=== PATIENT | female | born 2000 | race Caucasian/White ===

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

== ENCOUNTER 2021-01-23 10:25 | Outpatient (CLI) | payer MEDICAID, SELFPAY ==
[2021-01-23 10:55] VITALS: BP 113/82; PULSE 91; TEMP 36.4; O2SAT 100
[2021-01-23 11:09] VITALS: BMI 27.3
--- NOTE | 2021-01-23 17:00 | OB.TRI.NOTE ---
HPI - General HPI Narrative ADI JENKINS, is a 20 F who presents contractions PFSH PFSH Home Medications acetaminophen [Tylenol] 325 mg PO Q6H 01/23/21 [History Last Taken Unknown] [id number] [] 1 tab PO DAILY 01/23/21 [History Last Taken 01/16/21] Allergy/AdvReac Type Severity Reaction Status Date / Time Cephalosporins Allergy Anaphylaxis Verified 01/23/21 11:11 Penicillins [PCN] Allergy Anaphylaxis Verified 01/23/21 11:11 Social History Smoking Status: Never smoker NST FHR Rate Baby A Baseline: 120 Variability:: Moderate Accelerations:: 15 x 15 Decelerations:: None NST Reactive:: Yes Uterine Activity:: Quiet Assessment & Plan (1) : PLAN: Patient presents with contractions. No sign of labor. Reactive NST. Okay to discharge home follow-up at scheduled appointments
== END 2021-01-23 11:20 | disposition home or self-care (01) ==
LOC: WPOUT 10:26 → WP 10:27
PROVIDERS: Referring Provider Obstetrics & Gynecology; Visit Provider Obstetrics & Gynecology
DX: O47.9 False labor, unspecified (principal); Z3A.00 Weeks of gestation of pregnancy not specified
CPT/HCPCS: 59050; 99218; G0378

== ENCOUNTER 2021-02-03 21:30 | Inpatient (IN) | payer MEDICAID, SELFPAY ==
--- NOTE | 2021-02-03 21:38 | PCM.HP.BLA ---
History and Physical Date of Admission: 02/03/21 Chief complaint: Induction of labor at term History of present illness: 20-year-old G1, P0 at 41 weeks and 5 days with HUGH 01/23/2021 by 8-week ultrasound arrives for induction of labor at term. Denies headache, chest pain, shortness of breath, nausea vomit, right upper quadrant pain. Patient states good movement. Obstetric history: G1: Current Past medical history: Migraines Medications: vitamin, Fioricet Past surgical history: None Family history: Denies history DVT or PE Social history: Denies smoking, alcohol use, drug use Allergies: Keflex, penicillin Review of systems: Besides above pertinent positives a full review of systems was performed and found to be negative Physical exam: Vitals: Blood pressure 117/71 pulse 85 temp 97.7 SPO2 90% on room air General: Normal-appearing no acute distress HEENT: Normocephalic atraumatic no cervical of adenopathy Cardiac/respiratory: Nonlabored breathing, no use of accessory muscles Abdomen: Soft, nontender, gravid Extremities: No peripheral edema normal peripheral pulses Psych: Normal affect normal demeanor nonpressured speech Labs: White blood cell count 10.1, hemoglobin 10.0 hematocrit 32.3% platelets 298. Blood type a positive antibody negative Assessment plan: 20-year-old at 41 weeks and 5 days for induction of labor at term Admit labor and delivery CEFM GBS negative Cytotec induction Routine orders Anesthesia to see
[2021-02-03 21:43] VITALS: TEMP 37.3
[2021-02-03 21:44] VITALS: BP 114/79; PULSE 116
[2021-02-03 21:46] VITALS: BMI 28.1
[2021-02-03 22:18] LABS: Absolute Lymphocyte Count 1.78 X10^3/uL (0.83-4.51); Basophil# 0.03 X10^3/uL; Basophil% 0.3 % (0-1); Eosinophil# 0.03 X10^3/uL; Eosinophils% 0.3 % (0-5); Hematocrit 32.3 % (37-47); Lymphocyte # 1.78 X10^3/ul (0.83-4.51); Lymphocyte % 17.7 % (19-41); Mean Corpuscular Hgb 24.9 pg (27.0-32.0); Mean Corpuscular Volume 80.3 fL (81-99); Monocyte# 1.17 X10^3/uL; Monocyte% 11.6 % (0-10); NRBC Flagged by Analyzer 0 % (0-5); Neutrophil # 6.98 X10^3/uL (2.7-7.7); Neutrophil % 69.4 % (47-70); Platelet Count 298 K/mm3 (150-450); RBC Distribution Width CV 15.2 % (11.6-14.6); RBC Distribution Width SD 44.1 fl (35.1-43.9); Red Blood Count 4.02 M/mm3 (4.2-5.4); White Blood Count 10.1 K/mm3 (4.4-11.0)
[2021-02-03] MEDS: miSOPROStol 25 MCG TABLET PO (23:03)
[2021-02-03 23:15] VITALS: TEMP 36.6
[2021-02-03 23:16] VITALS: BP 121/65; PULSE 93
[2021-02-04] VITALS (28 sets, daily range): BP systolic 103–127; BP diastolic 56–84; PULSE 76–107; TEMP 36.1–37.2; O2SAT 97–100
[2021-02-04] MEDS: miSOPROStol 50 MCG TABLET PO ×2 (03:07→09:14)
[2021-02-04] MEDS: Acetaminophen 500 MG Tablet PO ×2 (03:10→09:13)
--- NOTE | 2021-02-04 11:42 | PCM.PN.OB ---
Subjective Subjective Pt feeling some cramping but not heavy contractions. Going natural Objective Data Objective Data Vital Signs: Vital Signs Temp Pulse BP Pulse Ox 98.9 F 93 124/60 H 99 02/04/21 09:42 02/04/21 09:42 02/04/21 09:42 02/04/21 09:42 Weight: 159 lb Body Mass Index (BMI) 28.1 Lab / Micro Data Result Diagrams: 02/03/21 21:50 Labs: Laboratory Results - last 24 hr 02/03/21 21:50: WBC 10.1, RBC 4.02 L, Hgb 10.0 L, Hct 32.3 L, MCV 80.3 L, MCH 24.9 L, MCHC 31.0 L, RDW Std Deviation 44.1 H, RDW Coeff of [place] 15.2 H, Plt Count 298, MPV 11.0, Immature Gran % (Auto) 0.700, Neut % (Auto) 69.4, Lymph % (Auto) 17.7 L, [place] % (Auto) 11.6 H, Eos % (Auto) 0.3, Baso % (Auto) 0.3, Absolute Neuts (auto) 7.0, Absolute Lymphs (auto) 1.78, Nucleated RBC % 0 02/03/21 21:50: Blood Type A POSITIVE, Antibody Screen NEGATIVE Micro: Microbiology 02/03/21 22:00 Mucosa - Nasopharyngeal SARS-CoV-2 Antigen (Rapid) - Final Physical Exam Const alert, oriented x3, no apparent distress, average body habitus, healthy appearing and well nourished HEENT normocephalic and moist oral mucous membranes Head and Scalp: atraumatic Face and Sinus: normal facial exam Neck full ROM Resp normal respiratory effort, no retractions and no use of accessory muscles GI normal to inspection, nondistended, normoactive bowel sounds Narrative: CE /-2 AROM clear fluid. IUPC placed Extremity normal to inspection, full ROM and no clubbing, cyanosis or edema Psych mental status grossly normal, affect normal, speech normal and activity/motor behavior normal NST FHR Rate Baby A Baseline: 130 Variability:: Moderate Accelerations:: 15 x 15 Decelerations:: Prolonged (Pt with 3-4 min decel in 60's resolved with position change. Accel with scalp stim) Uterine Activity:: q10 min Assessment & Plan (1) : PLAN: Patient seen and examined. Called by nursing with prolonged deceleration resolved with position change. Last dose of Cytotec was on 900. Cervical exam /, AROM clear fluid, IUPC placed. Patient feeling some contractions, going natural. Will start Pitocin for augmentation. Now with reassuring heart tones and after deceleration now category 1 tracing.
[2021-02-04] MEDS: Lactated Ringers 500 ML 999 ML IV ×2 (12:10→19:27)
[2021-02-04] MEDS: Oxytocin 30 units/NS 500 ml 30 UNITS/500 ML IV.SOLN IV (14:27)
[2021-02-04] MEDS: fentaNYL-bupivacaine (epidural) 100 ML BAG EPIDURAL ×3 (14:31→23:57)
[2021-02-04] MEDS: Lactated Ringers 1,000 ML 50 ML IV (17:31)
--- NOTE | 2021-02-04 19:00 | PCM.PN.OB ---
Subjective Subjective Obtain epidural but feeling very uncomfortable in bed. Still feeling back pain Objective Data Objective Data Vital Signs: Vital Signs Temp Pulse BP Pulse Ox 97.0 F L 76 112/74 99 02/04/21 17:22 02/04/21 17:23 02/04/21 17:22 02/04/21 17:23 Weight: 159 lb Body Mass Index (BMI) 28.1 Intake & Output: Intake and Output for Last 24 Hours 02/02/21 02/03/21 02/04/21 23:59 23:59 23:59 Intake Total 513.03 / 513.03 Output Total 700 / 700 Balance -186.97 / -186.97 Lab / Micro Data Result Diagrams: 02/03/21 21:50 Labs: Laboratory Results - last 24 hr 02/03/21 21:50: WBC 10.1, RBC 4.02 L, Hgb 10.0 L, Hct 32.3 L, MCV 80.3 L, MCH 24.9 L, MCHC 31.0 L, RDW Std Deviation 44.1 H, RDW Coeff of [place] 15.2 H, Plt Count 298, MPV 11.0, Immature Gran % (Auto) 0.700, Neut % (Auto) 69.4, Lymph % (Auto) 17.7 L, [place] % (Auto) 11.6 H, Eos % (Auto) 0.3, Baso % (Auto) 0.3, Absolute Neuts (auto) 7.0, Absolute Lymphs (auto) 1.78, Nucleated RBC % 0 02/03/21 21:50: Blood Type A POSITIVE, Antibody Screen NEGATIVE Micro: Microbiology 02/03/21 22:00 Mucosa - Nasopharyngeal SARS-CoV-2 Antigen (Rapid) - Final Physical Exam Const alert, oriented x3, no apparent distress, average body habitus, healthy appearing and well nourished HEENT normocephalic and moist oral mucous membranes Head and Scalp: atraumatic Neck full ROM Resp normal respiratory effort, no retractions and no use of accessory muscles GI normal to inspection, nondistended, normoactive bowel sounds Psych mental status grossly normal, affect normal, speech normal and activity/motor behavior normal Assessment & Plan (1) : PLAN: Patient status post epidural, initially with pain relief but currently increased pain. Anesthesia to see. Cervical dilation minimal at this point, approximately 2 cm. We will continue to titrate Pitocin. Educated patient on continuing position change and to titrate Pitocin. Will get comfortable with epidural.
[2021-02-04] MEDS: Ondansetron 4 MG/2 ML Vial IV (20:54)
[2021-02-04] MEDS: Lactated Ringers 1,000 ML 200 ML IV (22:46)
[2021-02-05] VITALS (33 sets, daily range): BP systolic 104–137; BP diastolic 58–84; PULSE 82–122; RESP 16; TEMP 36.6–37.3; O2SAT 93–99
[2021-02-05] MEDS: Lactated Ringers 500 ML 999 ML IV ×2 (02:05→03:10)
[2021-02-05] MEDS: Acetaminophen 500 MG Tablet PO (02:09)
[2021-02-05] MEDS: Oxytocin 30 units/NS 500 ml 30 UNITS/500 ML IV.SOLN 334 UNITS IV (05:10)
--- NOTE | 2021-02-05 05:38 | EX.PCM.OBRPT ---
Vaginal Delivery Findings Description of Procedure: Preop diagnosis: Term, maternal exhaustion Postop diagnosis: Term, maternal exhaustion Procedure: Vacuum-assisted vaginal delivery Surgeon: Reji Nolan MD Anesthesia: Epidural EBL: 250 cc Complications: None Specimen: None Findings: Female in vertex position, ROT +2 station. Apgars 5/7/8. First-degree midline perineal laceration, left labial laceration Consent: Patient arrived for induction of labor at term. Cervical dilation found to be complete and patient pushed for 3 hours. Patient began to feel exhausted. Upon evaluation head was palpated to be ROT +2 station. Pelvis felt to be appropriate for vaginal delivery and the fetus was not macrosomic by palpation. The epidural was adequate for pain relief. Educated patient on options of section versus vacuum versus forceps. Educated risk benefits alternatives of each procedure. Patient desired to proceed with vacuum delivery, understood there were small risk for cephalhematoma or shoulder dystocia. The process of the vacuum delivery was explained. Procedure: Hutchinson catheter was present. Vaginal examination reconfirmed ROT +2 station. Kiwi vacuum device was applied over the sagittal suture about 3 cm in front posterior fontanelle toward the face. Vacuum pressure was created. The edge of the vacuum cup was carefully examined and no maternal tissue was entrapped under the cup. Right hand applied gentle horizontal traction along the pelvic access in coordination with uterine contraction and maternal pushing. Progressive descent was noted with each pull. The handle of vacuum was gradually elevated when the perineum began to bulge. The cup popped off the head x1. The cup was removed after the head was delivered. Head and shoulders were delivered with ease. Cord was cut and clamped baby was handed off to hadoop infrastructure architect. The placenta was delivered via cord traction and fundal massage. IV oxytocin was initiated to facilitate uterine contractions. The cervix and vaginal wall were thoroughly examined. First-degree perineal midline laceration noted and repaired in typical fashion. Left labial laceration noted and repaired in typical fashion. The was examined after delivery. No visible lacerations or bruises were found.
[2021-02-05] MEDS: 0.9% Saline Lock 10 ML Syringe IV (07:47)
[2021-02-05] MEDS: Benzocaine/Lanolin/Aloe Vera 1 SPRAY EACH TOPICAL (10:29)
[2021-02-05] MEDS: Ibuprofen 600 MG Tablet PO (10:30)
[2021-02-05] MEDS: Acetaminophen 500 MG Tablet 1000 MG PO (18:21)
[2021-02-06] MEDS: Ibuprofen 600 MG Tablet PO (00:05)
[2021-02-06 00:10] VITALS: BP 124/82; PULSE 101; RESP 18; TEMP 37
[2021-02-06 04:50] VITALS: BP 119/87; PULSE 92; RESP 16; TEMP 36.7
[2021-02-06 07:43] VITALS: BP 122/76; PULSE 94; RESP 16; TEMP 36.5
[2021-02-06] MEDS: Senna/Docusate Sodium 1 Tablet PO (07:54)
[2021-02-06] MEDS: Acetaminophen 500 MG Tablet 1000 MG PO (07:54)
--- NOTE | 2021-02-06 08:24 | PCM.DC ---
Discharge Instructions Diet Discharge Diet: No restrictions Activity Discharge Activity: Return to Normal Activity, May Drive and May Shower May resume sexual activity in: 4-6 weeks Weight Bearing Status: Weight bearing as tolerated Dressing / Incision Call your doctor if your incision/area has: Continuous Slow Oozing and Foul Smelling Discharge Call your doctor if you observe: Fever of 101 or Higher, Shortness of breath and Chest pain Follow Up Care Please Follow Up With: Reji Nolan MD When: 2-week telehealth visit, 4 to 6-week visit Test Results: Test results from this visit will be discussed in further detail at your follow-up appointment, if applicable. Discharge Plan Admission Admit Date/Time: 02/03/21 21:30 Attending Provider: Tiffany Nicole Primary Care Provider: Care PhysicianGrace Primary Discharge Orders/Prescriptions Prescriptions: No Action 1 mg Tablet 1 tab PO DAILY RF: 0 acetaminophen [Tylenol] 325 mg Capsule 325 mg PO Q6H RF: 0 [id number] [Fioricet] 50-300-40 mg Capsule 50 cap PO PRN PRN (Reason: headache) RF: 0 Disposition Discharge Orders: Discharge Patient (Routine); Ordered 02/06/21 Ordered By: Dr. Reji Nolan
--- NOTE | 2021-02-06 08:25 | PN.OBGYN_ITS ---
Subjective Subjective No overnight complaints. Pain well controlled. Objective Data Objective Data Vital Signs: Vital Signs Temp Pulse Resp BP Pulse Ox 97.7 F L 94 16 122/76 H 93 02/06/21 07:43 02/06/21 07:43 02/06/21 07:43 02/06/21 07:43 02/05/21 05:52 Oxygen Delivery Method Room Air Weight: 159 lb Body Mass Index (BMI) 28.1 Intake & Output: Intake and Output for Last 24 Hours 02/04/21 02/05/21 02/06/21 23:59 23:59 23:59 Intake Total 2026.17 / 2026. 2524.9 / 2524.9 Output Total 700 / 700 600 / 600 Balance 1327.17 / 1327.17 1924.9 / 1924.9 Lab / Micro Data Result Diagrams: 02/03/21 21:50 Micro: Microbiology 02/03/21 22:00 Mucosa - Nasopharyngeal SARS-CoV-2 Antigen (Rapid) - Final Physical Exam Const alert, oriented x3, no apparent distress, average body habitus, healthy appearing and well nourished Exam Limitations: no limitations HEENT normocephalic Neck full ROM Resp normal respiratory effort, no retractions and no use of accessory muscles Extremity normal to inspection and no clubbing, cyanosis or edema Psych mental status grossly normal, affect normal, speech normal and activity/motor behavior normal Assessment & Plan (1) : PLAN: day 1. Breast-feeding. Pain well controlled. 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
[2021-02-06 11:50] VITALS: BP 113/73; PULSE 100; RESP 16; TEMP 36.8
== END 2021-02-06 12:15 | disposition home or self-care (01) | DRG 560 ==
PROVIDERS: Admitting Provider Obstetrics & Gynecology; Visit Provider Obstetrics & Gynecology
DX: O76 Abnormality in fetal heart rate and rhythm complicating labor and delivery (principal); O48.0 Post-term pregnancy; O75.81 Maternal exhaustion complicating labor and delivery; O70.0 First degree perineal laceration during delivery; Z3A.41 41 weeks gestation of pregnancy; Z37.0 Single live birth; Z87.891 Personal history of nicotine dependence
CPT/HCPCS: 59025; 59050; 85025; 86850; 86900; 86901; 87426; 99218; J7120; A4216; G0378; J2405

== ENCOUNTER 2022-02-11 14:55 | Emergency (ER) | payer MEDICAID, SELFPAY ==
[2022-02-11 14:56] VITALS: BP 115/85; PULSE 75; RESP 16; TEMP 36.6; O2SAT 98; BMI 19.3
--- NOTE | 2022-02-11 15:05 | EDS_ITS ---
HPI History of Present Illness Chief Complaint: Headache Informant: patient Onset/Context/Timing Onset: Days (4 days) Context: Gradual Timing: Waxes and wanes Quality -Headache: Positive for Similar Prior Headaches and Throbbing Current Severity: Moderate Maximum Severity: Moderate Narrative Narrative: Patient presents with 4-day history of migraine headache. She states it will vary between her temples. She is a history of similar migraines in the past. When she was she was told she only take Tylenol so therefore is only been using that for this migraine. She is not currently but is breast- feeding. She denies recent head injury. No recent URI symptoms. She does have light sensitivity along with nausea and vomiting. [facility] Medical History (Updated 02/11/22 @ 16:[address] Nury Mcdonough MD) Anxiety Migraines Home Medications acetaminophen 325 mg capsule (Tylenol) 325 mg PO Q6H headaches 01/23/21 [History Last Taken 02/03/21 1000 mg] Allergy/AdvReac Type Severity Reaction Status Date / Time Cephalosporins Allergy Anaphylaxis Verified 02/11/22 15:05 Penicillins [PCN] Allergy Anaphylaxis Verified 02/11/22 15:05 Social History Smoking Status: Former smoker ROS ROS ED Constitutional Constitutional ED: Denies chills or fever(s) Eyes Eyes: Denies change in vision or discharge from eye(s) ENT ENT ED: Denies discharge from eye(s), rhinorrhea or sore throat Cardiovascular Cardiovascular: Denies chest pain or palpitations Respiratory/Chest Respiratory/Chest: Denies cough or dyspnea Gastrointestinal Gastrointestinal: Reports nausea and vomiting; Denies abdominal pain or diarrhea Genitourinary Genitourinary ED: Denies difficulty urinating or dysuria Musculoskeletal Musculoskeletal: Denies back pain or extremity pain Integumentary Denies Abrasions or rash Neurologic Neurologic: Reports headache(s); Denies weakness Psychiatric Psychiatric: Denies anxiety or depression Endocrine Endocrinology: Denies polydipsia or polyuria Allergic/Immunologic Allergic/Immunologic ED: Denies lip swelling or urticaria EXAM Physical Exam Const Vital Signs: 02/11/22 14:56 Temperature 98 F Temperature Source Temporal Pulse Rate 75 Respiratory Rate 16 Blood Pressure 115/85 H Blood Pressure Mean 95 Pulse Ox 98 Oxygen Delivery Method Room Air Positive well nourished and well developed General Appearance ED: well developed HEENT Reports normocephalic and head/scalp atraumatic Eyes PERRL and EOMs intact bilaterally Neck supple Chest Wall inspection of chest normal and palpation of chest normal Resp normal respiratory effort and clear to auscultation bilaterally Cardio regular rate and regular rhythm GI normal to inspection, nondistended, normoactive bowel sounds Palpation: soft Extremity normal to inspection Neuro oriented x3 and no sensory deficits noted Sensorium / Orientation: alert Motor Exam: strength 5/5 throughout Psych mental status grossly normal Skin no rashes or lesions noted MDM MDM MDM Narrative Medical decision making narrative: Patient is given IV fluids along with Toradol, Reglan, Benadryl. Treatment and Re-Evaluation Narrative: On repeat evaluation patient reports feeling much improved. At this time she will be discharged home with family. Discharge Plan Triage Chief Complaint: Headache ED Provider: Nury Mcdonough Dx/Rx/DC Orders Clinical Impression: Migraine Instructions: ED, Migraine (Classical) Prescriptions: No Action acetaminophen [Tylenol] 325 mg Capsule 325 mg PO Q6H Primary Care Provider: Care Physician,No Primary Referrals: Lavinia Rolon DO [Med Staff - [employer]] - As Needed Care Physician,No Primary [Primary Care Provider] - Disposition Disposition: Home, Self Care
[2022-02-11] MEDS: 0.9% Normal Saline 1,000 ML 999 ML IV (15:29)
[2022-02-11] MEDS: Metoclopramide 10 MG/2 ML Vial 5 MG IV (15:29)
[2022-02-11] MEDS: DiphenhydrAMINE 50 MG/ML Syringe 12.5 MG IV (15:30)
[2022-02-11] MEDS: Ketorolac 30 MG/ML Syringe IV (15:30)
[2022-02-11 16:31] VITALS: BP 104/72; PULSE 63; RESP 16
== END 2022-02-11 16:33 | disposition home or self-care (01) ==
PROVIDERS: Emergency Provider Emergency Medicine; Visit Provider Emergency Medicine
DX: G43.909 Migraine, unspecified, not intractable, without status migrainosus (principal); Z87.891 Personal history of nicotine dependence
CPT/HCPCS: 96361; 96374; 96375; 99282; J7030; A4216

== ENCOUNTER 2022-02-20 10:57 | Emergency (ER) | payer MEDICAID, SELFPAY ==
[2022-02-20 10:58] VITALS: BP 116/73; PULSE 125; RESP 18; TEMP 36.3; O2SAT 96; BMI 19.3
--- NOTE | 2022-02-20 11:23 | EDS_ITS ---
HPI History of Present Illness Chief Complaint: Headache Narrative Narrative: Patient presents with migraine headache that she is had since 6:00 this morning, approximately 5 and half hours ago. It is associated with nausea and vomiting. She vomited twice without any blood in her emesis. She states that she has past medical history of recurrent migraines but is currently not on medication. She had to come to the emergency department last week where they gave her a migraine cocktail which relieved her symptoms and they suggested that she follow-up with her primary care physician according to her. She does not have any breakthrough medications at home because she was doing well, but does endorse more frequent migraines. This is typical for her previous migraines, it is one- sided, on the right. She endorses photophobia and minimal phonophobia. She denies any aura or paresthesias. She thought maybe it was starting a small amount last evening. She took Tylenol this morning without relief of her symptoms. PFSH PFS Medical History Anxiety Migraines Home Medications acetaminophen 325 mg capsule (Tylenol) 325 mg PO Q6H headaches 01/23/21 [History Last Taken 02/03/21 1000 mg] Allergy/AdvReac Type Severity Reaction Status Date / Time Cephalosporins Allergy Anaphylaxis Verified 02/20/22 10:59 Penicillins [PCN] Allergy Anaphylaxis Verified 02/20/22 10:59 Social History Smoking Status: Former smoker ROS ROS ED ROS Narrative Constitutional: No fever, no chills. HEENT: No sore throat. No neck pain. No loss of vision. No rhinorrhea. Cardiovascular: No chest pain. No palpitations. No pedal edema. Respiratory: No cough, no shortness of breath. Abdominal: No abdominal pain. Positive nausea. 2 episodes of nonbloody vomiting. Genitourinary: No dysuria. No hematuria. Musculoskeletal: No myalgias. No arthralgias. Neurologic: Positive right-sided migraine headaches. No dizziness. No lightheadedness. Skin: No rash. No change in color. Psychiatric: No depression. No anxiety. EXAM Physical Exam Narrative Exam Narrative: Afebrile. Vital signs noted. HEENT: Normocephalic. Atraumatic. PERRL, EOMI. Neck soft and supple. No point tenderness or step off. Cardiovascular: Regular rate and rhythm. No murmurs, rubs, or gallops appreciated. Respiratory: No tachypnea. Lungs clear to auscultation bilaterally. Gastrointestinal: Abdomen soft, nontender, with normoactive bowel sounds. No rebound or guarding. Neurological: Awake. Alert. Oriented x3. Nonfocal, nonlateralizing. DTRs equal and symmetric. EHL intact bilaterally. Skin: No rash. Normal color. No pallor. Musculoskeletal: No pedal edema. Full range of motion extremities. Const Vital Signs: 02/20/22 10:58 02/20/22 13:15 Temperature 97.3 F L Temperature Source Temporal Pulse Rate 125 H Respiratory Rate 18 Blood Pressure 116/73 119/80 Blood Pressure Mean 87 93 Pulse Ox 96 Oxygen Delivery Method Room Air MDM MDM MDM Narrative Medical decision making narrative: Patient was administered IV fluid normal saline bolus of 1 L along with Compazine and Benadryl. She was allowed to rest in the emergency department. Just prior to formal discharge, RN states that the patient stated that she had to go home and take care of her family and that she had been feeling improved. She eloped prior to formal discharge. Patient was in improved and stable condition. Discharge Plan Triage Chief Complaint: Headache ED Provider: Alvaro Sam Dx/Rx/DC Orders Clinical Impression: Migraine, Nausea & vomiting Instructions: ED, Migraine (Classical) Prescriptions: No Action acetaminophen [Tylenol] 325 mg Capsule 325 mg PO Q6H Primary Care Provider: Care Physician,No Primary Referrals: Care Physician,No Primary [Primary Care Provider] - Disposition Disposition: Elopement
[2022-02-20] MEDS: proCHLORPERazine 10 MG/2 ML Vial IV (11:31)
[2022-02-20] MEDS: 0.9% Normal Saline 1,000 ML 999 ML IV (11:31)
[2022-02-20] MEDS: DiphenhydrAMINE 50 MG/ML Syringe 25 MG IV (11:31)
[2022-02-20 13:15] VITALS: BP 119/80
== END 2022-02-20 13:20 | disposition left against medical advice (07) ==
PROVIDERS: Emergency Provider Emergency Medicine; Visit Provider Emergency Medicine
DX: G43.909 Migraine, unspecified, not intractable, without status migrainosus (principal); Z53.29 Procedure and treatment not carried out because of patient's decision for other reasons; Z87.891 Personal history of nicotine dependence
CPT/HCPCS: 96361; 96374; 96375; 99282; J7030; A4216

== ENCOUNTER 2022-06-07 08:10 | Emergency (ER) | payer MEDICAID, SELFPAY ==
[2022-06-07 08:13] VITALS: BP 117/75; PULSE 99; RESP 16; TEMP 35.7; O2SAT 97; BMI 19.1
[2022-06-07] MEDS: DiphenhydrAMINE 50 MG/ML Syringe 25 MG IV (08:47)
[2022-06-07] MEDS: 0.9% Normal Saline 1,000 ML 999 ML IV (08:48)
[2022-06-07] MEDS: proCHLORPERazine 10 MG/2 ML Vial IV (08:49)
[2022-06-07] MEDS: Ketorolac 30 MG/ML Syringe IV (08:49)
--- NOTE | 2022-06-07 10:15 | ED.RN ---
pt left department. pulled iv out
--- NOTE | 2022-06-07 10:19 | EX.ED.DYSGE1 ---
HPI History of Present Illness Chief Complaint: Headache Informant: patient Narrative Narrative: 21-year-old female presents to the emergency room with 3 days of a headache. She notes pain behind the right eye extending back towards the head. She notes that she has vomited twice. She notes light sensitivity. She has breast-feeding and does not know what she can take so she is only been taking Tylenol. She denies any fevers. No arm or leg symptoms. No speech difficulty. She denies any rashes or any neck pain. [facility] Medical History Anxiety Migraines Home Medications acetaminophen 325 mg capsule (Tylenol) 325 mg PO Q6H headaches 01/23/21 [History Last Taken 02/03/21 1000 mg] Allergy/AdvReac Type Severity Reaction Status Date / Time Cephalosporins Allergy Anaphylaxis Verified 06/07/22 08:13 Penicillins [PCN] Allergy Anaphylaxis Verified 06/07/22 08:13 Social History (Updated 06/07/22 @ 10:[address] Gerardo Friedman DO) Smoking Status: Former smoker substance use type: does not use ROS ROS ED Constitutional Constitutional ED: Denies chills or weight loss Eyes Eyes: Denies change in vision or diplopia ENT ENT ED: Denies ear pain, rhinorrhea or sore throat Cardiovascular Cardiovascular: Denies chest pain, orthopnea, palpitations or racing heartbeat Respiratory/Chest Respiratory/Chest: Denies cough, dyspnea or orthopnea Gastrointestinal Gastrointestinal: Reports nausea and vomiting; Denies abdominal pain or diarrhea Genitourinary Genitourinary ED: Denies dysuria, hematuria or urinary frequency Musculoskeletal Musculoskeletal: Denies arthralgias or myalgias Integumentary Denies abscess or rash Neurologic Neurologic: Reports headache(s); Denies weakness Psychiatric Psychiatric: Denies anxiety, depression, suicidal ideation or suicidal thoughts Endocrine Endocrinology: Denies polydipsia, polyphagia or polyuria Allergic/Immunologic Allergic/Immunologic ED: Denies mouth swelling, tongue swelling or urticaria EXAM Physical Exam Const Vital Signs: 06/07/22 08:13 Temperature 96.2 F L Temperature Source Temporal Pulse Rate 99 Respiratory Rate 16 Blood Pressure 117/75 Blood Pressure Mean 89 Pulse Ox 97 Oxygen Delivery Method Room Air Positive well nourished and well developed General Appearance ED: well developed HEENT Reports normocephalic, head/scalp atraumatic and moist mucous membranes Eyes PERRL and EOMs intact bilaterally Neck no lymphadenopathy, supple and no JVD Resp normal respiratory effort and clear to auscultation bilaterally Cardio regular rate, regular rhythm and no murmurs GI normal to inspection, nondistended, normoactive bowel sounds and non-tender Palpation: soft Back/Spine no CVA tenderness and normal ROM Extremity normal to inspection General Extremety ED: Negative for edema General Extremity: Negative for edema Neuro oriented x3 and CN's II-XII intact bilaterally Sensorium / Orientation: alert Motor Exam: strength 5/5 throughout Psych mental status grossly normal Mood & Affect: Negative for depressed or tearful Skin no rashes or lesions noted and no wounds MDM MDM MDM Narrative Medical decision making narrative: Patient received IV fluids Compazine Toradol and Benadryl. When I went back to reevaluate the patient the patient was gone and her IV was in the trash can. Discharge Plan Triage Chief Complaint: Headache ED Provider: Gerardo Friedman Dx/Rx/DC Orders Clinical Impression: Migraine headache Prescriptions: No Action acetaminophen [Tylenol] 325 mg Capsule 325 mg PO Q6H Primary Care Provider: Care Physician,No Primary Referrals: Care Physician,No Primary [Primary Care Provider] - Disposition Disposition: Elopement
== END 2022-06-07 10:15 | disposition left against medical advice (07) ==
PROVIDERS: Emergency Provider Emergency Medicine; Visit Provider Emergency Medicine
DX: G43.909 Migraine, unspecified, not intractable, without status migrainosus (principal); Z87.891 Personal history of nicotine dependence
CPT/HCPCS: 96361; 96374; 96375; 99282; J7030; A4216

== ENCOUNTER → 2023-05-07 | Outpatient (CLI) | payer MEDICAID, SELFPAY ==
--- NOTE | 2023-05-07 12:23 | US_ITS ---
STUDY: FIRST TRIMESTER OBSTETRICAL ULTRASOUND REASON FOR EXAM: Female, 22 years old OB LESS THAN 14 WEEKS, dating LMP: February 26, 2023. TECHNIQUE: Transabdominal TECHNICAL QUALITY: Adequate. PRIOR ULTRASOUND: None. FINDINGS: There is visualization of a single gestational sac in a normal intrauterine position. The mean sac diameter (MSD) measures 4.44 cm, indicating an estimated gestational age (EGA) of 9 weeks, 6 days. The gestational sac shape is within normal limits. There is a visualized yolk sac. The yolk sac measures 4.8 mm. The placenta is non-visualized. There is visualization of a live embryo. The crown-rump length (CRL) measures 3.45 cm, indicating an estimated gestational age (EGA) of 10 weeks, 1 days. There is demonstrated cardiac activity with a heart rate of 164 bpm. The estimated gestation age (EGA) by LMP is 10 weeks, 0 days. The estimated date of delivery (HUGH) by LMP is December 03, 2023. The estimated gestation age (EGA) by US is 10 weeks, 0 days. The estimated date of delivery (HUGH) by US is December 03, 2023. The uterus measures 9.4 cm x 9.6 cm x 4.8 cm. There is no demonstrated uterine fibroid. The cervix is closed. The right ovary measures 1.5 cm x 1.1 cm x 2.9 cm. There is no right ovarian cyst. There is no visualized right adnexal mass or complex lesion. The left ovary measures 1.7 cm x 2.9 cm x 1.9 cm. There is no left ovarian cyst. There is no visualized left adnexal mass or complex lesion. There is no fluid in the cul de sac. US/Init OB < 14Wks US IMPRESSION: Single live intrauterine gestation with mean gestational age of 10 weeks. Electronically Signed: Julien Duarte MD at 14:53 EDT ,
== END | disposition home or self-care (01) ==
LOC: OPUS 12:20
DX: Z36.87 Encounter for antenatal screening for uncertain dates (principal)
CPT/HCPCS: 76801

== ENCOUNTER → 2023-07-19 | Outpatient (CLI) | payer MEDICAID, SELFPAY ==
--- NOTE | 2023-07-19 10:05 | US_ITS ---
STUDY: SECOND AND THIRD TRIMESTER OBSTETRICAL ULTRASOUND REASON FOR EXAM: Female, 22 years old SCREENING LMP: TECHNIQUE: Transabdominal TECHNICAL QUALITY: Adequate. PRIOR ULTRASOUND: None. FINDINGS: There is a single intrauterine fetus. The fetus is in a variable presentation. There is demonstrated cardiac activity with a heart rate of 147 bpm. There is a normal amniotic fluid volume. The largest amniotic fluid pocket measures 3.9 x 9.7 cm.. The placenta is anterior and fundal There are Grade 0 placental changes. The cervix measures 3.26 cm in length. The bilateral adnexal regions are normal. BIOMETRY: BPD: 4.74 cm: 20 weeks, 2 days HC: 17.59 cm: 20 weeks, 1 days AC: 15.29 cm: 20 weeks, 3 days FL: : weeks, days CI: 0.77 FL/BPD: 0.73 FL/HC: FL/AC: 0.20 HC/AC: 1.15 age by current US: 20 weeks, 3 days. HUGH by current US: December 03, 2023. Estimated weight: 368 grams, +/- 55 grams, 56 %. age by prior US: weeks, days. HUGH by prior US: . Age by LMP: 20 weeks, 3 days. HUGH by LMP: December 03, 2023. ANATOMY: Cranium: Normal lateral ventricles. Normal choroid plexus. Normal cerebellum. Normal cisterna magna. Normal face, nose and lips. Chest: Normal 4-chamber heart. Abdomen/Pelvis: Normal diaphragm. Normal stomach. Normal abdominal wall. Normal cord insertion. Normal 3 vessel cord. Dilatation of the right renal pelvis measuring 7 mm and left measuring 8 mm of indeterminate etiology or clinical significance.. Normal bladder. Spine: Normal cervical spine. Normal thoracic spine. Normal lumbar spine. Normal sacrum. Extremities: Normal bilateral upper extremities. Normal bilateral lower extremities. US/OB Anatomy Scan IMPRESSION: Viable intrauterine gestation approximately 20-21 weeks gestational age Mild bilateral renal pelvis dilatation of uncertain etiology or clinical significance. Recommend clinical correlation and follow-up studies Electronically Signed: Elias Cobos MD at 17:26 EST ,
--- OUTSIDE RECORDS SUMMARY | 2023-07-19 10:28 | XMS RPT_ITS | CCD ---
Author Name Unknown Address [id number] [place] [address] Organization [facility] Care Team Providers Care Parts Data Writer Name Role Phone Haja Kong MD Primary Care Provider HAJA KONG Primary Care Unavailable HAJA KONG Primary Care Unavailable JAKOB GELLER, KEKE Matamoros Attending Deanavarogerio labKEKE Giron Attending Deanavarogerio labfavian Allergies Allergy Classification Reported Allergen(s) Allergy Type Date of Onset Reaction(s) Facility (4 sources) Cephalosporins (Antibiotic); Translations: [CEPHALOSPORINS] Drug Allergy 4 Anaphylaxis [facility] (4 sources) Penicillins; Translations: [PENICILLINS] Drug Allergy 2 Hives, Swelling, Anaphylaxis [facility] Medications Completed/Discontinued Medications Medication Drug Class(es) Dates Sig (Normalized) Sig (Original) Amitriptyline (1 source) Tricyclic Antidepressant End: 11-12-2022 amitriptyline HCl (AMITRIPTYLINE ORAL) Take by mouth. 0 11/12/2022 Discontinued Problems Active Problems Problem Classification Problem Date Documented Da te Episodic/Chronic Acute and chronic tonsillitis (1 source) Amygdalolith; Translations: [Other chronic diseases of tonsils and adenoids] 02-08-2023 Chronic Headache; including migraine (7 sources) Migraine with aura; Translations: [Migraine with aura, not intractable, without status migrainosus] Onset: 11-07-2014 Chronic Other upper respiratory infections (1 source) Sore throat symptom; Translations: [Acute pharyngitis, unspecified] 02-08-2023 Episodic Past or Other Problems Problem Classification Problem Date Documented Da te Episodic/Chronic Malaise and fatigue (3 sources) Malaise and fatigue; Translations: [Other malaise] Onset: 09-15-2018 09-15-2018 Episodic Other acquired deformities (3 sources) Acquired unequal leg length; Translations: [Unequal limb length (acquired), unspecified site] Onset: 12-06-2013 12-06-2013 Episodic Screening and history of mental health and substance abuse codes (3 sources) Depression screening positive; Translations: [Encounter for screening for depression] Onset: 09-15-2018 09-15-2018 Episodic Viral infection (3 sources) Infectious mononucleosis; Translations: [Infectious mononucleosis, unspecified without complication] Onset: 09-21-2018 09-21-2018 Episodic Results Test Name Value Interpretation Reference Range Facil ity Vital Signs Date Time Vital Sign Value Performing Clinician James schluer 02-08-2023 15:53-0400 Body temperature 98.4 [degF] Ashish Xie MD Work Phone: [facility] 02-08-2023 15:53-0400 Body weight 45.09 kg Ashish Xie MD Work Phone: [facility] 02-08-2023 15:53-0400 Diastolic blood pressure 80 mm[Hg] Ashish Xie MD Work Phone: [facility] 02-08-2023 15:53-0400 Heart rate 80 /min Ashish Xie MD Work Phone: [facility] 02-08-2023 15:53-0400 Respiratory rate 19 /min Ashish Xie MD Work Phone: [facility] 02-08-2023 15:53-0400 SaO2% (BldA) [Mass fraction] 98 % Ashish Xie MD Work Phone: [facility] 02-08-2023 15:53-0400 Systolic blood pressure 110 mm[Hg] Ashish Xie MD Work Phone: [facility] 11-12-2022 16:46-0400 Body temperature 99.9 [degF] Ashish Xie MD Work Phone: [facility] 11-12-2022 16:46-0400 Body weight 45.45 kg Ashish Xie MD Work Phone: [facility] 11-12-2022 16:46-0400 Diastolic blood pressure 64 mm[Hg] Ashish Xie MD Work Phone: [facility] 11-12-2022 16:46-0400 Heart rate 104 /min Ashish Xie MD Work Phone: [facility] 11-12-2022 16:46-0400 Respiratory rate 18 /min Ashish Xie MD Work Phone: [facility] 11-12-2022 16:46-0400 SaO2% (BldA) [Mass fraction] 98 % Ashish Xie MD Work Phone: [facility] 11-12-2022 16:46-0400 Systolic blood pressure 102 mm[Hg] Ashish Xie MD Work Phone: [facility] Encounters Encounter Date Encounter Type Care Provider Facility Start: 07-07-2023 End: 07-08-2023 ambulatory 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 ROBERT 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-CNM Facility:B Start: 06-09-2023 End: 06-10-2023 ambulatory KEKE ROBERT 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-CNJaime Facility:B Start: 04-20-2023 Patient encounter status Princess Wong MD Work Phone: [facility] Work Phone: Start: 04-20-2023 Telephone encounter Princess snyder MD Work Phone: [facility] Start: 02-08-2023 End: 02-08-2023 ambulatory HAJA KONG Facility:[facility] Start: 02-08-2023 End: 02-08-2023 Patient encounter procedure Ashish Xie MD Work Phone: [facility] Procedures Date Procedure Procedure Detail Performing Clinician Start: 02-08-2023 STREP A MOLECULAR (POC) Ashish Xie MD Work Phone: Plan of Treatment Date Care Activity Detail Author Start: 03-05-2023 [facility] Start: 01-09-2023 Urine microalbumin profile [facility] Start: 2022 PAP TESTING PAP TESTING [facility] Start: 07-05-2022 DEPRESSION ASSESSMENT DEPRESSION ASS ESSMENT [facility] Start: 08-22-2020 CHLAMYDIA SCREENING (1824) CHLAMYDIA SCREENING () [facility] Start: 08-22-2020 GC (GONORRHEA) SCREE ANNALISA (18-24) GC (GONORRHEA) SCREENING () [facility] Start: 10-01-2019 HEPATITIS C SCREENING HEPATITIS C SC REENING [facility] Start: 10-01-2019 HIV SCREENING HIV SCREENING [facility] Start: 2017 Meningococcal B Vacc ine: Consider Based On Risk (1 of 2 - Patient Seeks Protection) Meningococcal B Vaccine: Consider Based On Risk (1 of 2 - Patient Seeks Protection) [facility] Start: 2017 MENINGOCOCCAL 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 (1 of 2 - Patient Seeks Protection) MENINGOCOCCAL B: Consider based on risk (1 of 2 - Patient Seeks Protection) [facility] Start: 10-01-2015 PEDS TO ADULT TRANSI TION ANNUAL ASSESSMENT PEDS TO ADULT TRANSITION ANNUAL ASSESSMENT [facility] Start: 2013 PEDS TO ADULT TRANSI TION INITIAL DISCUSSION PEDS TO ADULT TRANSITION INITIAL DISCUSSION [facility] Start: 10-01-2011 MENINGOCOCCAL 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 (1 of 2 - Risk Bexsero 2-dose series) MENINGOCOCCAL B: Consider based on risk (1 of 2 - Risk Bexsero 2-dose series) [facility] Start: 10-01-2007 PNEUMOCOCCAL (1 - PCV) PNEUMOCOCCAL (1 - PCV) [facility] Start: 10-01-2007 Pneumococcal vaccination Pneum ococcal Vaccine (1 - PCV) [facility] Start: 04-02-2002 COVID-19 VACCINE (#1) COVID-19 VACCI NE (#1) [facility] Immunizations Immunization Date Immunization Notes Care Provider Ihsan squires 11-04-2017 meningococcal polysaccharide (groups A, C, Y and W-135) diphtheria toxoid conjugate vaccine (MCV4P) Ashish Xie MD Work Phone: [facility] Work Phone: 02-20-2014 hepatitis B vaccine, pediatric or pediatric/adolescent dosage Ashish Xie MD Work Phone: [facility] 01-10-2014 hepatitis A vaccine, pediatric/adolescent dosage, 2 dose schedule Ashish Xie MD Work Phone: [facility] 01-10-2014 human papilloma viru s vaccine, quadrivalent Ashish Xie MD Work Phone: [facility] 10-11-2013 human papilloma viru s vaccine, quadrivalent Ashish Xie MD Work Phone: [facility] 10-11-2013 measles, mumps and rubella virus vaccine Ashish Xie MD Work Phone: [facility] 10-11-2013 poliovirus vaccine, inactivated Ashish Xie MD Work Phone: [facility] 10-11-2013 varicella virus vaccine Ifrah Xie MD Work Phone: [facility] 01-09-2013 hepatitis A vaccine, unspecified formulation Ashish Xie MD Work Phone: [facility] 01-09-2013 human papilloma viru s vaccine, quadrivalent Ashish Xie MD Work Phone: [facility] 01-09-2013 Meningococcal, MCV4, unspecified conjugate formulation(groups A, C, Y and W-135) Ashish Xie MD Work Phone: [facility] 01-09-2013 tetanus toxoid, redu francesco diphtheria toxoid, and acellular pertussis vaccine, adsorbed Ashish Xie MD Work Phone: [facility] 04-04-2010 influenza virus vacc ine, unspecified formulation Ashish Xie MD Work Phone: [facility] Work Phone: 07-09-2003 diphtheria, tetanus toxoids and pertussis vaccine Ashish Xie MD Work Phone: [facility] Work Phone: 07-09-2003 varicella virus vaccine Ifrah Xie MD Work Phone: [facility] Work Phone: 06-08-2003 influenza virus vacc ine, unspecified formulation Ashish Xie MD Work Phone: [facility] Work Phone: 10-03-2002 haemophilus influenz ae type b vaccine, HbOC conjugate Ashish Xie MD Work Phone: [facility] Work Phone: 10-03-2002 hepatitis B vaccine, pediatric or pediatric/adolescent dosage Ashish Xie MD Work Phone: [facility] Work Phone: 10-03-2002 measles, mumps and rubella virus vaccine Ashish Xie MD Work Phone: [facility] Work Phone: 10-03-2002 poliovirus vaccine, inactivated Ashish Xie MD Work Phone: [facility] Work Phone: 07-17-2002 influenza virus vacc ine, unspecified formulation Ashish Xie MD Work Phone: [facility] Work Phone: 06-14-2002 diphtheria, tetanus toxoids and pertussis vaccine Ashish Xie MD Work Phone: [facility] Work Phone: 06-14-2002 influenza virus vacc ine, unspecified formulation Ashish Xie MD Work Phone: [facility] Work Phone: 02-28-2002 diphtheria, tetanus toxoids and pertussis vaccine Ashish Xie MD Work Phone: [facility] Work Phone: 02-28-2002 pneumococcal conjuga te vaccine, 7 valent Ashish Xie MD Work Phone: [facility] Work Phone: 02-28-2002 poliovirus vaccine, inactivated Ashish Xie MD Work Phone: [facility] Work Phone: 01-17-2002 diphtheria, tetanus toxoids and pertussis vaccine Ashish Xie MD Work Phone: [facility] Work Phone: 01-17-2002 hepatitis B vaccine, pediatric or pediatric/adolescent dosage Ashish Xie MD Work Phone: [facility] Work Phone: 01-17-2002 pneumococcal conjuga te vaccine, 7 valent Ashish Xie MD Work Phone: [facility] Work Phone: 01-17-2002 poliovirus vaccine, inactivated Ashish Xie MD Work Phone: [facility] Work Phone: Payers Date Payer Category Payer Medicaid [id number] 2022 Medicaid [id number] 2022 Medicaid [id number] 2001 Unknown [id number] 2001 Unknown [id number] Social History Date Type Detail Facility Start: 11-12-2022 Tobacco smoking stat [facility] Smokes tobacco daily [facility] History of tobacco use Cigarette Smoker C [facility] Start: 06-09-2020 End: 11-12-2022 Cigarettes smoked current (pack per day) - Reported 0.8 [facility] Start: 11-12-2022 Tobacco use and exposure Smoke less tobacco non-user [facility] Start: 11-12-2022 End: 02-08-2023 Alcohol intake Current non-drinker of alcohol (finding) [facility] Start: 2001 Sex Assigned At Not on file C [facility] Start: 06-09-2020 End: 02-08-2023 Tobacco use panel [facility] National Score (1-10 0), lower number is lower risk Not on file [facility] Clinical Notes 07-16-2015 to 04-20-2023 Telephone Encounter - Princess Wong MD - 04/20/2023 10:52 AM EDTMAshish Barnhart MD - 02/08/2023 4:11 PM EDTAshish Xie MD - 11/12/2022 4:49 PM EDT Note Date & Type Note Facility 04-20-2023 Miscellaneous Notes p documented in this encounter [facility] 02-08-2023 Note HNO ID: [id number] Author: Ashish Xie MD Service: ? Author Type: Physician Type: Progress Notes Filed: 02/08/2023 4:28 PM Note Text: Patient presents with: Sore Throat: Migraine x 1 day HPI: Feeling sick yesterday. She coughed a franci of something out of her throat last night. She feels better today than she did last night. Positive symptoms: Sore throat, migraine Headache yesterday, lingering head pressureMalaise, clamy, Negative symptoms: Cough, Rhinorrhea, Nausea, Vomiting, Diarrhea, OTC: Tylenol PAST MEDICAL HISTORY Diagnosis Date Constipation 11/07/2014 Gastroesophageal reflux disease with esophagitis 07/16/2015 Migraine Nocturnal enuresis 09/19/2011 resolved Nondisplaced spiral fracture of shaft of femur (HCC) 2002 resolved MEDICATIONS: No current outpatient medications on file. No current facility-administered medications for this visit. ALLERGIES: ALLERGIES Allergen Reactions Cephalosporins Anaphylaxis Penicillins Hives, Swelling, Anaphylaxis VITALS: BP 110/80 Pulse 80 Temp 36.9 ?C (98.4 ?F) Resp 19 Wt 45.1 kg (99 lb 6.4 oz) LMP 09/22/2019 (Exact Date) SpO2 98% PHYSICAL EXAM: GEN: pleasant, alert, mildly ill appearing HEENT: PERRL, EOMI, conjunctiva clear Ears: canals clear. TMs without erythema, bulge, or effusion Sinuses: non-tender frontal sinus, non-tender maxillary sinuses Throat: moist mucous membranes, mild erythema, white material in crypts of right tonsil Neck: supple, no thyromegaly, no lymphadenopathy HEART: regular rate and rhythm, no murmurs LUNGS: clear to auscultation, no wheezes or crackles, no increased WOB ASSESSMENT/PLAN: 1. Sore throat - ICD9: 462, ICD10: J02.9 (primary diagnosis) 2. Tonsillolith - ICD9: 474.8, ICD10: J35.8 - STREP A MOLECULAR (POC) - negative Tonsil stones discussed. She may have a mild viral illness. Follow up with ENT if tonsil stone symptoms become persistently/recurrently bothersome. Ashish Xie MD [facility] 02-08-2023 History of Presen t illness Narrative Patient presents with: Sore Throat: Migraine x 1 day HPI: Feeling sick yesterday. She coughed a franci of something out of her throat last night. She feels better today than she did last night. Positive symptoms: Sore throat, migraine Headache yesterday, lingering head pressureMalaise, clamy, Negative symptoms: Cough, Rhinorrhea, Nausea, Vomiting, Diarrhea, OTC: Tylenol PAST MEDICAL HISTORY Diagnosis Date Constipation 11/07/2014 Gastroesophageal reflux disease with esophagitis 07/16/2015 Migraine Nocturnal enuresis 09/19/2011 resolved Nondisplaced spiral fracture of shaft of femur (HCC) 2002 resolved MEDICATIONS: No current outpatient medications on file. No current facility-administered medications for this visit. ALLERGIES: ALLERGIES Allergen Reactions Cephalosporins Anaphylaxis Penicillins Hives, Swelling, Anaphylaxis VITALS: BP 110/80 Pulse 80 Temp 36.9 C (98.4 F) Resp 19 Wt 45.1 kg (99 lb 6.4 oz) LMP 09/22/2019 (Exact Date) SpO2 98% PHYSICAL EXAM: GEN: pleasant, alert, mildly ill appearing HEENT: PERRL, EOMI, conjunctiva clear Ears: canals clear. TMs without erythema, bulge, or effusion Sinuses: non-tender frontal sinus, non-tender maxillary sinuses Throat: moist mucous membranes, mild erythema, white material in crypts of right tonsil Neck: supple, no thyromegaly, no lymphadenopathy HEART: regular rate and rhythm, no murmurs LUNGS: clear to auscultation, no wheezes or crackles, no increased WOB ASSESSMENT/PLAN: 1. Sore throat - ICD9: 462, ICD10: J02.9 (primary diagnosis) 2. Tonsillolith - ICD9: 474.8, ICD10: J35.8 - STREP A MOLECULAR (POC) - negative Tonsil stones discussed. She may have a mild viral illness. Follow up with ENT if tonsil stone symptoms become persistently/recurrently bothersome. Ashish Xie MD documented in this encounter [facility] 11-12-2022 Note HNO ID: [id number] Author: Ashish Xie MD Service: ? Author Type: Physician Type: Progress Notes Filed: 11/12/2022 5:12 PM Note Text: Patient presents with: Headache: SAMPSON and stomach hurts x 2 days HPI: Headache: Duration: started in the middle of the night 2 nights ago. Location: right gnosticist and behind the eye Character: sharp, throbbing, and stabbing. Symptoms are mild currently but were very intense yesterday and she missed work Radiation: Aggravating: light Relieving: Pain relievers: Tylenol - breast feeding Associated: nausea and vomiting, aura (shining light in right eye) Pertinent negatives: Denies numbness, weakness PAST MEDICAL HISTORY Diagnosis Date Constipation 11/07/2014 Gastroesophageal reflux disease with esophagitis 07/16/2015 Migraine Nocturnal enuresis 09/19/2011 resolved Nondisplaced spiral fracture of shaft of femur (HCC) 2002 resolved MEDICATIONS: No prescriptions on file. ALLERGIES: ALLERGIES Allergen Reactions Cephalosporins Anaphylaxis Penicillins Hives, Swelling, Anaphylaxis VITALS: BP 102/64 Pulse 104 Temp 37.7 ?C (99.9 ?F) (Tympanic) Resp 18 Wt 45.5 kg (100 lb 3.2 oz) LMP 09/22/2019 (Exact Date) SpO2 98% PHYSICAL EXAM: GEN: pleasant, no acute distress, well nourished HEENT: PERRL, EOMI, MMM, NECK: supple, no lymphadenopathy, no thyromegaly HEART: regular rate, regular rhythm, no murmurs LUNGS: clear to auscultation, no wheezes or crackles, no increased WOB EXT: no clubbing, no cyanosis, no edema BACK: Normal curvature, no midine tenderness, no paraspinal tenderness NEURO: Alert and oriented to person, place, and time; DTR 2+/4 and strength 4/4 in upper and lower extremities, CN II-XII intact, gait normal PSYCH: normal mood, full range of affect, speech rate and content appropriate ASSESSMENT/PLAN: 1. Migraine with aura, not intractable, without status migrainosus - ICD9: 346.00, ICD10: G43.109 Resolving migraine. Reviewed risks and benefits of migraine treatment while . She may continue acetaminophen as needed. Ibuprofen can be taken but can decrease milk production. Excedrin can be considered in low/limited doses. Ashish Xie MD [facility] 11-12-2022 History of Presen t illness Narrative Patient presents with: Headache: SAMPSON and stomach hurts x 2 days HPI: Headache: Duration: started in the middle of the night 2 nights ago. Location: right gnosticist and behind the eye Character: sharp, throbbing, and stabbing. Symptoms are mild currently but were very intense yesterday and she missed work Radiation: Aggravating: light Relieving: Pain relievers: Tylenol - breast feeding Associated: nausea and vomiting, aura (shining light in right eye) Pertinent negatives: Denies numbness, weakness PAST MEDICAL HISTORY Diagnosis Date Constipation 11/07/2014 Gastroesophageal reflux disease with esophagitis 07/16/2015 Migraine Nocturnal enuresis 09/19/2011 resolved Nondisplaced spiral fracture of shaft of femur (HCC) 2002 resolved MEDICATIONS: No prescriptions on file. ALLERGIES: ALLERGIES Allergen Reactions Cephalosporins Anaphylaxis Penicillins Hives, Swelling, Anaphylaxis VITALS: BP 102/64 Pulse 104 Temp 37.7 C (99.9 F) (Tympanic) Resp 18 Wt 45.5 kg (100 lb 3.2 oz) LMP 09/22/2019 (Exact Date) SpO2 98% PHYSICAL EXAM: GEN: pleasant, no acute distress, well nourished HEENT: PERRL, EOMI, MMM, NECK: supple, no lymphadenopathy, no thyromegaly HEART: regular rate, regular rhythm, no murmurs LUNGS: clear to auscultation, no wheezes or crackles, no increased WOB EXT: no clubbing, no cyanosis, no edema BACK: Normal curvature, no midine tenderness, no paraspinal tenderness NEURO: Alert and oriented to person, place, and time; DTR 2+/4 and strength 4/4 in upper and lower extremities, CN II-XII intact, gait normal PSYCH: normal mood, full range of affect, speech rate and content appropriate ASSESSMENT/PLAN: 1. Migraine with aura, not intractable, without status migrainosus - ICD9: 346.00, ICD10: G43.109 Resolving migraine. Reviewed risks and benefits of migraine treatment while . She may continue acetaminophen as needed. Ibuprofen can be taken but can decrease milk production. Excedrin can be considered in low/limited doses. Ashish Xie MD documented in this encounter [facility] documented as of this encounter (statuses as of 11/13/2022) [facility] History of Past illness Narrative* Problem Noted Date Diagnosed Date Resolved Date Gastroesophageal reflux dise ase with esophagitis 07/16/2015 11/04/2017 Constipation 11/07/2014 11/04/2017 Nocturnal enuresis 09/19/2011 8 documented as of this encounter (statuses as of 02/09/2023) [facility] History of Past illness Narrative* Problem Noted Date Diagnosed Date Resolved Date Gastroesophageal reflux dise ase with esophagitis 07/16/2015 11/04/2017 Constipation 11/07/2014 11/04/2017 Nocturnal enuresis 09/19/2011 8 documented as of this encounter (statuses as of 04/20/2023) [facility] Diagnosis Migraine with aura, not intractable, without status migrainosus- Primary [facility] Diagnosis Sore throat- Primary Acute pharyngitis Tonsillolith Other chronic disease of tonsils and adenoids [facility] Diagnosis Well adult health check- Primary Routine general medical examination at a health care facility documented in this encounter [facility] Summary Purpose Family History No Family History Records FoundNo Family History Records FoundNo Family History Records Found Advance Directives No Advanced Directives Records FoundNo Advanced Directives Records FoundNo Advanced Directives Records Found Reason for Referral Specialty Diagnoses / Procedures Referred By Iveth wood Referred To Contact INTERNAL MEDICINE Diagnoses Well adult health check Procedures ESTABLISH WITH PRIMARY CARE NEW PATIENT OFFICE/OUTPATIENT NEW HIGH MDM 60-74 MINUTES Princess Wong MD [address] [place] [address] [facility] [address] [place] [address] Referral ID Status Reason Start Date Expiration Date Visits Requested Visits Authorized [id number] Authorized PCP Requested Referral 3 04/19/2024 1 1 Additional Source Comments INFORMATION SOURCE (unrecogn ized section and content) DATE CREATED AUTHOR AUTHOR'S ORGANIZ ATION 04/21/2023 [facility] DATE CREATED AUTHOR AUTHOR'S ORGANIZ ATION 07/08/2023 [facility] ([place]) Source Comments (unrecognize d section and content) In the event this informatio n is protected by the Federal Confidentiality of Alcohol and Drug Abuse Patient Records regulations: The Federal rules restrict any use of the information to criminally investigate or prosecute any alcohol or drug abuse patient.[facility] the event this information is protected by the Federal Confidentiality of Alcohol and Drug Abuse Patient Records regulations: The Federal rules restrict any use of the information to criminally investigate or prosecute any alcohol or drug abuse patient.[facility] the event this information is protected by the Federal Confidentiality of Alcohol and Drug Abuse Patient Records regulations: The Federal rules restrict any use of the information to criminally investigate or prosecute any alcohol or drug abuse patient.[facility] Reason for Visit (unrecogniz ed section and content) Reason Comments Sore Throat Migraine x 1 day Care Teams (unrecognized sec tion and content) Parts Data Writer Relationship Specialty Start Date End Date Haja Kong MD [address] [place], [place] [id number] PCP - General Pediatrics 08/24/11 Parts Data Writer Relationship Specialty Start Date End Date Haja Kong MD [address] [place], [place] [id number] PCP - General Pediatrics 08/24/11 FOR RECORDS PERTAINING TO PATIENTS WHO ARE OR HAVE BEEN ENROLLED IN A CHEMICAL DEPENDENCY/SUBSTANCEABUSE PROGRAM, SOME INFORMATION MAY BE OMITTED. This clinical summary was aggregated from multiple sources. Caution should be exercised in using it in the provision of clinical care. This summary normalizes information from multiple sources, and as a consequence, information in this document may materially change the coding, format and clinical context of patient data. In addition, data may be omitted in some cases. CLINICAL DECISIONS SHOULD BE BASED ON THE PRIMARY CLINICAL RECORDS. [employer] [employer] [facility]. provides no warranty or guarantee of the accuracy or completeness of information in this document.
== END | disposition home or self-care (01) ==
PROVIDERS: Referring Provider Specialist; Visit Provider Specialist
DX: Z36.3 Encounter for antenatal screening for malformations (principal)
CPT/HCPCS: 76805